=== PATIENT | female | born 1985 | race Caucasian/White ===

== ENCOUNTER 2017-06-25 03:58 | Emergency (ER) | payer SELFPAY ==
--- NOTE | 2017-06-25 04:44 | ED ---
Gabriella Rust Gabriel, scribed for Matt Obrien MD on 06/25/17 at 0436 . Medical Screening - HPI Summary HPI Summary: The patient is a 31 F brought in by police for a blood draw to assess alcohol level. Patient has no medical complaints and is not on any medication - History of Current Complaint Chief Complaint: EDGeneral Stated Complaint: BLOOD KIT Time Seen by Provider: 06/25/17 04:22 Onset/Duration: Still Present Severity: mild Associated Signs and Symptoms: Negative PMH/Surg Hx/FS Hx/Imm Hx - Surgical History Surgery Procedure, Year, and Place: TOOTH EXTRACTIONS, Thyroid surgery 2014- d/ t growth, Carpal tunnel surgery 08/03/14 Infectious Disease History: No Infectious Disease History: Denies: Traveled Outside the [place] in Last 30 Days - Social History Alcohol Use: Rare Substance Use Type: Reports: None Smoking Status (MU): Light Every Day Tobacco Smoker Type: Cigarettes Length of Time of Smoking/Using Tobacco: 14 years Have You Smoked in the Last Year: Yes Review of Systems All Other Systems Reviewed And Are Negative: No Physical Exam - Summary Physical Exam Summary: VITAL SIGNS: Reviewed. GENERAL: Patient is a well-developed and nourished femalewho is lying comfortable in the stretcher. Patient is not in any acute respiratory distress. HEAD AND FACE: No signs of trauma. No ecchymosis, hematomas or skull depressions. No sinus tenderness. EYES: PERRLA, EOMI x 2, No injected conjunctiva, no nystagmus. EARS: Hearing grossly intact. Ear canals and tympanic membranes are within normal limits. MOUTH: Oropharynx within normal limits. NECK: Supple, trachea is midline, no adenopathy, no JVD, no carotid bruit, no c- spine tenderness, neck with full ROM. CHEST: Symmetric, no tenderness at palpation LUNGS: Clear to auscultation bilaterally. No wheezing or crackles. CVS: Regular rate and rhythm, S1 and S2 present, no murmurs or gallops appreciated. ABDOMEN: Soft, non-tender. No signs of distention. No rebound no guarding, and no masses palpated. Bowel sounds are normal. EXTREMITIES: FROM in all major joints, no edema, no cyanosis or clubbing. NEURO: Alert and oriented x 3. No acute neurological deficits. Speech is normal and follows commands. SKIN: Dry and warm Triage Information Reviewed: Yes Vital Signs On Initial Exam: Initial Vitals Temp Pulse Resp BP Pulse Ox 97.9 F 113 18 141/94 100 06/25/17 04:00 06/25/17 04:00 06/25/17 04:00 06/25/17 04:00 06/25/17 04:00 Vital Signs Reviewed: Yes Diagnostics - Vital Signs Vital Signs Temp Pulse Resp BP Pulse Ox 06/25/17 04:00 97.9 F 113 18 141/94 100 - Laboratory Lab Statement: Any lab studies that have been ordered have been reviewed, and results considered in the medical decision making process. Course/Dx - Diagnoses Provider Diagnoses: blood draw Discharge - Discharge Plan Condition: Stable Disposition: HOME Referrals: Mamadou Murray MD [Primary Care Provider] - The documentation as recorded by the Gabriella finley Gabriel accurately reflects the service I personally performed and the decisions made by Camille harvey Abdul, MD.
[2017-06-25 04:45] VITALS: BP 136/89
== END 2017-06-25 04:44 | disposition home or self-care (01) ==
LOC: ED 03:58
DX: Z02.83 Encounter for blood-alcohol and blood-drug test (principal)
CPT/HCPCS: 99281